=== PATIENT | male | born 1975 | race Caucasian/White ===

== ENCOUNTER → 2016-05-24 | Outpatient (CLI) | payer BC ==
--- NOTE | 2016-05-24 19:39 | SLS ---
DATE OF SERVICE: 05/24/2016 A 41-year-old gentleman who has been followed in the sleep center for treatment of severe obstructive sleep apnea-hypopnea syndrome. I discussed the results of diagnostic sleep study and CPAP titration with the patient in detail. He has extremely severe sleep apnea with apnea-hypopnea index 100.8 with oxygen desaturation to 77.3%. Recommended treatment with CPAP at 14 cm of water. Patient is using his machine for close to 3 months. I checked his CPAP unit. CPAP pressure is 14 cm of water. Usage for last month 27 out of 30 nights for more than 4 hours which is great compliance. Leak of 17 L/min, which is acceptable. ( ) and automatic regimen. Apnea-hypopnea index 1.2 with usage of CPAP. Patient feels significantly better with regard to his sleep and feeling during the day. [place] Sleepiness Scale is 8. MEDICATIONS: Lipitor and Cialis. During physical exam, a pleasant gentleman without distress. BP 117/84, HR 66, RR 16. Weight 260. Temperature 98.1. Oxygen saturation at room air 96%. HEENT: PERRLA, EOMI. LUNGS: Clear. HEART: S1, S2 regular. ABDOMEN: Obese, soft, nontender. BAT BOY/GIRL no focal deficits. IMPRESSION: 1. Extremely severe obstructive sleep apnea-hypopnea syndrome. Apnea-hypopnea index 100.8 with oxygen desaturation to 77.3% on control with CPAP at 14 cm of water. Patient demonstrated great compliance with treatment, benefiting from treatment. 2. Obesity. 3. History of hypertension. 4. Hyperlipidemia. 5. History of erectile dysfunction. 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 PLAN: 1. Continue treatment with CPAP every night for the whole night. 2. Losing weight. 3. Sleep hygiene with regular time in bed for at least 8 hours. 4. No driving if feeling any sleepiness. 5. Prescription for all necessary CPAP supplies. Thank you very much for allowing me to participate in the management of your patient.
== END | disposition home or self-care (01) ==
LOC: SLEEP 14:35
PROVIDERS: ATTEND Internal Medicine
DX: G47.33 Obstructive sleep apnea (adult) (pediatric) (principal); E66.9 Obesity, unspecified; I10 Essential (primary) hypertension; E78.5 Hyperlipidemia, unspecified; N52.9 Male erectile dysfunction, unspecified

== ENCOUNTER 2023-02-18 18:29 | Emergency (ER) | payer BC ==
--- NOTE | 2023-02-18 19:43 | ED ---
General Adult HPI - General Source: RN notes reviewed <Cindy Fairbanks - Last Filed: 02/18/23 19:43> <Padmini Cook - Last Filed: 02/19/23 01:09> - General Stated complaint: Fall-split lip Time Seen by Provider: 02/18/23 19:42 - History of Present Illness Initial comments: Patient is a 48 year old male who presents to the emergency department for laceration. (Cindy Fairbanks) 48-year-old male presents emergency Department with chief complaint of a laceration. He states that he was working out in his garage when he tripped and fell hitting his face. He states he is not sure what he hit his face on.He did not lose consciousness, not on blood thinners. He reports a laceration to his top lip. Bleeding controlled at this time. He is up-to-date on tetanus vac cination with it being within the last 5 years. (Padmini oCok) - Related Data Allergies Allergy/AdvReac Type Severity Reaction Status Date / Time azithromycin AdvReac Nausea & Verified 02/18/23 19:46 Vomiting Review of Systems ROS Other: All systems not noted in ROS Statement are negative. <Cindy Fairbanks - Last Filed: 02/18/23 19:43> ROS Other: All systems not noted in ROS Statement are negative. <Padmini Cook - Last Filed: 02/19/23 01:09> ROS Statement: Those systems with pertinent positive or pertinent negative responses have been documented in the HPI. General Exam <Cindy Fairbanks - Last Filed: 02/18/23 19:43> Limitations: no limitations General appearance: alert, in no apparent distress Head exam: Present: atraumatic, normocephalic, normal inspection Eye exam: Present: normal appearance, PERRL, EOMI. Absent: scleral icterus, conjunctival injection, periorbital swelling ENT exam: Present: mucous membranes moist, other (Laceration to top lip about 1 cm, not through and through) Respiratory exam: Present: normal lung sounds bilaterally. Absent: respiratory distress, wheezes, rales, rhonchi, stridor Cardiovascular Exam: Present: regular rate, normal rhythm, normal heart sounds. Absent: systolic murmur, diastolic murmur, rubs, gallop, clicks Neurological exam: Present: alert, oriented X3 Psychiatric exam: Present: normal affect, normal mood Skin exam: Present: warm, dry, normal color, other (Laceration to the top lip). Absent: intact <Padmini Cook - Last Filed: 02/19/23 01:09> - General Exam Comments Initial Comments: IVisual Physical Exam Vital signs reviewed General: Well-appearing, nontoxic, no acute distress. Head: Normocephalic, atraumatic Eyes: PERRLA, EOMI ENT: Airway patent Chest: Nonlabored breathing Skin: No visual rash, normal skin tone Neuro: Alert and oriented 3 Musculoskeletal: No gross abnormalities (Cindy Fairbanks) Course Vital Signs 02/18/23 02/18/23 19:43 21:30 Temperature 98.2 F Pulse Rate 60 69 Respiratory 20 20 Rate Blood Pressure 164/92 175/103 O2 Sat by Pulse 98 97 Oximetry Procedures - Laceration Laceration #1 Consent Obtained: verbal consent Indication: laceration Site: lip Size (cm): 2 Description: linear Depth: simple, single layer Anesthetic Used: lidocaine 1% Anesthesia Technique: local infiltration Pre-repair: irrigated extensively Type of Sutures: other Size of Sutures: 6-0 Number of Sutures: 4 Technique: simple, interrupted Patient Tolerated Procedure: well, no complications <Padmini Cook - Last Filed: 02/19/23 01:09> Medical Decision Making <Cindy Fairbanks - Last Filed: 02/18/23 19:43> <Padmini Cook - Last Filed: 02/19/23 01:09> - Medical Decision Making I performed the QuickNote portion of this chart - Cindy Fairbanks PA-C (Cindy Fairbanks) Was pt. sent in by a medical professional or institution ([facility], [facility] [employer], urgent care, hospital, or [facility]...) When possible be specific @ -No Did you speak to anyone other than the patient for history (EMS, parent, family, police, friend...)? What history was obtained from this source @ -No Did you review nursing and triage notes (agree or disagree)? Why? @ -I reviewed and agree with nursing and triage notes Were old charts reviewed (outside hosp., previous admission, EMS record, old EKG, old radiological studies, urgent care reports/EKG's, [facility] records)? Report findings @ -No old charts were reviewed Differential Diagnosis (chest pain, altered mental status, abdominal pain women, abdominal pain men, vaginal bleeding, weakness, fever, dyspnea, syncope, headache, dizziness, GI bleed, back pain, seizure, CVA, palpatations, mental health, musculoskeletal)? @ -Laceration, abrasion, head injury, this list is not all inclusive EKG interpreted by me (3pts min.). @ -none X-rays interpreted by me (1pt min.). @ -None done CT interpreted by me (1pt min.). @ -None done U/S interpreted by me (1pt. min.). @ -None done What testing was considered but not performed or refused? (CT, X-rays, U/S, labs)? Why? @ -None What meds were considered but not given or refused? Why? @ -None Did you discuss the management of the patient with other professionals (professionals i.e. , PA, G[employer]MENT PATTERN[employer]KER, lab, RT, psych nurse, director of social work, phone screener, teacher, credit or loans officer, community case manager)? Give summary @ -No Was smoking cessation discussed for >3mins.? @ -No Was critical care preformed (if so, how long)? @ -No Were there social determinants of health that impacted care today? How? (Homelessness, low income, unemployed, alcoholism, drug addiction, transportation, low edu. Level, literacy, decrease access to med. care, retirement, rehab)? @ -No Was there de-escalation of care discussed even if they declined (Discuss DNR or withdrawal of care, Hospice)? DNR status @ -No What co-morbidities impacted this encounter? (DM, HTN, Smoking, COPD, CAD, Cancer, CVA, ARF, Chemo, Hep., AIDS, mental health diagnosis, sleep apnea, morbid obesity)? @ -None Was patient admitted / discharged? Hospital course, mention meds given and rout e, prescriptions, significant lab abnormalities, going to OR and other pertinent info. @ -Discharged. Patient presented to emergency department chief complaint lip laceration. He states that he was in the garage when he tripped and fell hitting his face on something but he is unsure what. He did not lose consciousness is not on any blood thinners. This wound was cleaned and repaired. Patient instructed on wound care. Patient stable at time of discharge. Case discussed with Dr. Santana Undiagnosed new problem with uncertain prognosis? @ -No Drug Therapy requiring intensive monitoring for toxicity (Heparin, Nitro, Insulin, Cardizem)? @ -No Were any procedures done? @ -No Diagnosis/symptom? @ -lip laceration Acute, or Chronic, or Acute on Chronic? @ -acute Uncomplicated (without systemic symptoms) or Complicated (systemic symptoms)? @ -uncomplicated Side effects of treatment? @ -No Exacerbation, Progression, or Severe Exacerbation? @ -No Poses a threat to life or bodily function? How? (Chest pain, [place], [place], pneumonia, PE, COPD, DKA, ARF, appy, cholecystitis, CVA, Diverticulitis, Homicidal, Suicidal, threat to staff... and all critical care pts) @ -No (Padmini Cook) Disposition <Cindy Fairbanks - Last Filed: 02/18/23 19:43> Is patient prescribed a controlled substance at d/c from ED?: No <Padmini Cook - Last Filed: 02/19/23 01:09> Clinical Impression: Lip laceration Disposition: HOME SELF-CARE Condition: Stable Instructions (If sedation given, give patient instructions): Care For Your Stitches (ED) Additional Instructions: Please have sutures removed in around 5 days. Follow up with your primary care provider. Return to the emergency department for new or worsening symptoms. Referrals: None,Stated [Primary Care Provider] - 1-2 days
[2023-02-18 20:06] VITALS: RESP 20; TEMP 98.2
[2023-02-18] MEDS ORDERED: LIDOCAINE 1% INJ 10MG/ML (20 ML MDV) SQ ONE (20:16)
[2023-02-18 21:48] VITALS: BP 175/103; PULSE 69
== END 2023-02-18 21:31 | disposition home or self-care (01) ==
LOC: EC 18:29
DX: S01.511A Laceration without foreign body of lip, initial encounter (principal); W01.10XA Fall on same level from slipping, tripping and stumbling with subsequent striking against unspecified object, initial encounter; Y92.59 Other trade areas as the place of occurrence of the external cause; Y99.0 Civilian activity done for income or pay
CPT/HCPCS: 12011; 99283; J2001